=== PATIENT | female | born 1990 | race Caucasian/White ===

== ENCOUNTER → 2016-04-01 | Outpatient (CLI) | payer OTHER, SELFPAY | END | disposition short-term general hospital (02) | LOC: CLOBGYN 13:52 | DX: N83.209 Unspecified ovarian cyst, unspecified side (principal); R10.2 Pelvic and perineal pain ==

== ENCOUNTER → 2016-06-24 | Outpatient (CLI) | payer SELFPAY | END | disposition short-term general hospital (02) | LOC: CLOBGYN 11:03 | DX: N83.209 Unspecified ovarian cyst, unspecified side (principal) ==